=== PATIENT | female | born 1950 | race Caucasian/White ===

== ENCOUNTER 2017-10-03 13:00 | Emergency (ER) | payer MEDICARE ==
[2017-10-03 13:12] VITALS: RESP 18
--- NOTE | 2017-10-03 13:24 | ED ---
Head Injury HPI - General Chief complaint: Head Injury Stated complaint: Fall Time Seen by Provider: 10/03/17 13:13 Source: patient, RN notes reviewed Mode of arrival: wheelchair Limitations: no limitations - History of Present Illness Initial comments: This is a 67-year-old female who presents to the emergency department with chief complaint of head injury. Patient states that approximately 11 AM she slipped on a patch of ice outside and hit the back of her head on concrete. Patient denies any loss of consciousness however she does complain of a mild headache and mild dizziness. She complains of a lump on the back of her head. Patient states that at approximately 11:45 she took 2 Tylenol and that has improved her headache. Patient denies being on any blood thinners or aspirin. She denies any other injuries. Denies fever, chills, chest pain, shortness of breath, abdominal pain, nausea or vomiting, constipation or diarrhea, dysuria or hematuria, numbness or tingling, or vision changes. - Related Data Allergies/Adverse reactions: Allergies Allergy/AdvReac Type Severity Reaction Status Date / Time Penicillins Allergy Unknown Verified 10/03/17 13:12 Review of Systems ROS Statement: Those systems with pertinent positive or pertinent negative responses have been documented in the HPI. ROS Other: All systems not noted in ROS Statement are negative. Past Medical History Past Medical History: No Reported History History of Any Multi-Drug Resistant Organisms: None Reported Past Surgical History: Appendectomy, Bladder Surgery, Orthopedic Surgery, Tonsillectomy Past Psychological History: No Psychological Hx Reported Smoking Status: Never smoker Past Alcohol Use History: Occasional Past Drug Use History: None Reported General Exam - General Exam Comments Initial Comments: General: Awake and alert, well-developed; in no apparent distress. is at bedside HEENT: Mild area of swelling right parieto-occipital region. No lacerations. Pupils are equal, round and reactive to light. Extraocular movements intact. Oropharynx moist without erythema or exudate. Neck: Supple. Normal ROM. Cardiovascular: Regular rate and rhythm. No murmurs, rubs or gallops. Chest symmetrical. Respiratory: Lungs clear to auscultation bilaterally. No wheezes, rales or rhonchi. Normal respiratory effort with no use of accessory muscles. Musculoskeletal: Normal ROM, no tenderness, strength 5/5 bilateral upper and lower extremities. Ambulating normally. Skin: [place], warm and dry without rashes or lesions. Neurological: Alert and oriented x3. CN II-XII grossly intact. Speech is fluent and answers are appropriate. No focal neuro deficits. Finger-nose testing is normal. Rapid alternating movements normal. Heel to toe gait normal. Romberg negative. Psychiatric: Normal mood and affect. No overt signs of depression or anxiety noted. Limitations: no limitations Course Vital Signs 10/03/17 13:09 Temperature 98.5 F Pulse Rate 70 Respiratory 18 Rate Blood Pressure 141/84 O2 Sat by Pulse 98 Oximetry Medical Decision Making - Medical Decision Making This is a 67-year-old female who presents to the emergency department with chief complaint of head injury. Patient denies any loss of consciousness or severe headache. She denies being on any blood thinners. Discussed indications for computed tomography scan of the brain. Patient requests to have computed tomography scan performed as she drove an hour to get to the emergency department. She declined CT of neck as she says her neck feels normal with normal ROM and no tenderness. Computed tomography scan revealed no acute intracranial hemorrhages. It did reveal a large right-sided occipital hematoma. Patient was made aware of findings. Return parameters were discussed. Patient will be discharged home. She is in agreement and voices understanding. All questions were answered. - Radiology Data Radiology results: report reviewed CT brain impression: No acute intracranial hemorrhage or midline shift. There is mild diffuse age-related cerebral atrophy and moderate chronic small vessel ischemic change noted. There is moderate to large size acute right occipital scalp hematoma. Disposition Clinical Impression: Hematoma of scalp Disposition: HOME SELF-CARE Condition: Good Instructions: Contusion in Adults (ED), Hematoma (ED) Additional Instructions: Please follow up with primary care provider within 1-2 days. Return to emergency department if symptoms should worsen or any concerns arise. Referrals: None,Stated [REFERRING] - 1-2 days Time of Disposition: 14:33
--- NOTE | 2017-10-03 14:13 | CT ---
EXAMINATION TYPE: CT brain wo con DATE OF EXAM: 10/03/2017 HISTORY: Fell and hit head CT DLP: 945.5 mGycm. Automated Exposure Control for Dose Reduction was Utilized. TECHNIQUE: CT scan of the head is performed without contrast. COMPARISON: None. FINDINGS: There is no acute intracranial hemorrhage or midline shift identified. There is diffuse v entricular and sulcal prominence consistent with mild diffuse age-related cerebral atrophy. There is low-attenuation in the periventricular white matter consistent with chronic small vessel ischemic ch srikanth. The globes are intact and the visualized sinuses are clear. There is moderate to large sized right occipital acute scalp hematoma centered near axial image 35. The calvarium is intact. IMPRESSION: No acute intracranial hemorrhage or midline shift. There is mild diffuse age-related ce rebral atrophy and moderate chronic small vessel ischemic change noted. There is moderate to large s ize acute right occipital scalp hematoma.
[2017-10-03 14:38] VITALS: BP 141/91; PULSE 75; TEMP 98
== END 2017-10-03 14:37 | disposition home or self-care (01) ==
LOC: EC 13:00
DX: S00.03XA Contusion of scalp, initial encounter (principal); Z88.0 Allergy status to penicillin; W00.0XXA Fall on same level due to ice and snow, initial encounter; Y92.89 Other specified places as the place of occurrence of the external cause
CPT/HCPCS: 70450; 99283